=== PATIENT | female | born 1945 | race Caucasian/White ===

== ENCOUNTER 2017-04-04 11:10 | Emergency (ER) | payer MEDICARE, OTHER ==
[~2017-04-04] VITALS: Wt 100.9 kg
[2017-04-04] MEDS ORDERED: ASPIR LOW81 MG PO (11:50)
[2017-04-04] MEDS ORDERED: BUMETANIDE2 M1 PO (11:50)
[2017-04-04] MEDS ORDERED: CALCITRIOL0.5 MCG PO (11:50)
[2017-04-04] MEDS ORDERED: COREG12.5 M1 PO (11:51)
[2017-04-04] MEDS ORDERED: INSULIN HUMA100 U/ML SQ (11:51)
[2017-04-04] MEDS ORDERED: COZAAR25 M1 PO (11:51)
[2017-04-04] MEDS ORDERED: CRESTOR5 MG PO (11:51)
[2017-04-04] MEDS ORDERED: LANTUS PEN100 U/ML SQ (11:51)
[2017-04-04] MEDS ORDERED: WARFARIN SOD5 MG PO (11:52)
[2017-04-04] MEDS ORDERED: TIROSINT50 MC1 PO (11:52)
[2017-04-04 14:23] VITALS: BP 130/76
[2017-04-08] MEDS ORDERED: VITAMIN D33000 UNIT PO (11:49)
[2017-05-02] MEDS ORDERED: CALCITRIOL PO (16:09)
== END 2017-04-04 14:18 | disposition home or self-care (01) ==
LOC: ED 11:10
DX: I13.0 Hypertensive heart and chronic kidney disease with heart failure and stage 1 through stage 4 chronic kidney disease, or unspecified chronic kidney disease (principal); I50.22 Chronic systolic (congestive) heart failure; N18.9 Chronic kidney disease, unspecified; E11.22 Type 2 diabetes mellitus with diabetic chronic kidney disease; Z79.4 Long term (current) use of insulin; Z79.01 Long term (current) use of anticoagulants

== ENCOUNTER → 2017-04-08 | Outpatient (CLI) | payer MEDICARE, OTHER ==
[~2017-04-08] VITALS: Ht 172.7 cm; Wt 99.5 kg
[~2017-04-08] MED LIST: ASPIR LOW81 MG PO; BUMETANIDE2 M1 PO; BUMEX 1MG TA1 MG/TA1 PO; CALCITRIOL PO; CALCITRIOL0.5 MCG PO; COREG12.5 M1 PO; COZAAR25 M1 PO; CRESTOR5 MG PO; INSULIN HUMA100 U/ML SQ; LANTUS PEN100 U/ML SQ; TIROSINT50 MC1 PO; VITAMIN D33000 UNIT PO; WARFARIN SOD5 MG PO
[2017-04-08 11:52] VITALS: BP 137/87
== END ==
LOC: AMSURD 10:56
DX: R60.9 Edema, unspecified (principal); Z79.01 Long term (current) use of anticoagulants; Z51.81 Encounter for therapeutic drug level monitoring

== ENCOUNTER → 2017-04-11 | Outpatient (CLI) | payer MEDICARE, OTHER ==
[2017-04-08 11:52] VITALS: BP 137/87
== END ==
LOC: LAB 13:51
DX: R60.9 Edema, unspecified (principal)

== ENCOUNTER → 2017-04-17 | Outpatient (CLI) | payer MEDICARE, OTHER ==
[2017-04-08 11:52] VITALS: BP 137/87
== END ==
LOC: LAB 11:35
DX: R60.9 Edema, unspecified (principal)

== ENCOUNTER → 2017-05-02 | Outpatient (CLI) | payer MEDICARE, OTHER ==
[~2017-05-02] VITALS: Ht 172.7 cm; Wt 99.5 kg
[2017-05-02 16:11] VITALS: BP 142/87
== END ==
LOC: AMSURD 15:35
DX: E11.9 Type 2 diabetes mellitus without complications (principal); E03.4 Atrophy of thyroid (acquired); N18.9 Chronic kidney disease, unspecified; I25.5 Ischemic cardiomyopathy

== ENCOUNTER 2017-05-12 13:08 | Emergency (ER) | payer MEDICARE, OTHER ==
[~2017-05-12] VITALS: Ht 175.3 cm; Wt 102.3 kg
[~2017-05-12 13:08] MED LIST changes: -BUMEX 1MG TA1 MG/TA1 PO
[2017-05-12] MEDS ORDERED: BUMEX 1MG TA1 MG/TA1 PO (13:16)
[2017-05-12 16:05] VITALS: BP 146/88
== END 2017-05-12 15:30 | disposition short-term general hospital (02) ==
LOC: ED 13:08
DX: I48.2 Chronic atrial fibrillation (principal); I13.0 Hypertensive heart and chronic kidney disease with heart failure and stage 1 through stage 4 chronic kidney disease, or unspecified chronic kidney disease; E11.22 Type 2 diabetes mellitus with diabetic chronic kidney disease; Z79.01 Long term (current) use of anticoagulants; I25.10 Atherosclerotic heart disease of native coronary artery without angina pectoris; Z95.1 Presence of aortocoronary bypass graft; N18.4 Chronic kidney disease, stage 4 (severe); Z79.4 Long term (current) use of insulin; I50.1 Left ventricular failure, unspecified

== ENCOUNTER → 2017-05-21 | Outpatient (CLI) | payer MEDICARE, OTHER ==
[2017-05-12 16:05] VITALS: BP 146/88
[~2017-05-21] MED LIST changes: +BUMEX 1MG TA1 MG/TA1 PO
== END ==
LOC: LAB 14:18
DX: I48.1 Persistent atrial fibrillation (principal)

== ENCOUNTER → 2017-06-05 | Outpatient (CLI) | payer MEDICARE, OTHER ==
[2017-05-12 16:05] VITALS: BP 146/88
== END ==
LOC: LAB 12:34
DX: Z79.899 Other long term (current) drug therapy (principal)

== ENCOUNTER 2017-07-01 11:44 | Outpatient (RCR) | payer MEDICARE, OTHER | END 2017-09-29 | disposition home or self-care (01) | LOC: CARDREHAB | DX: I50.9 Heart failure, unspecified (principal) ==

== ENCOUNTER → 2017-07-03 | Outpatient (CLI) | payer MEDICARE, OTHER | LOC: LAB 12:17 | DX: N18.9 Chronic kidney disease, unspecified (principal); I48.91 Unspecified atrial fibrillation ==

== ENCOUNTER → 2017-07-14 | Outpatient (CLI) | payer MEDICARE, OTHER | LOC: LAB 12:50 | DX: I48.91 Unspecified atrial fibrillation (principal); N18.4 Chronic kidney disease, stage 4 (severe) ==

== ENCOUNTER → 2017-07-25 | Outpatient (CLI) | payer MEDICARE, OTHER | LOC: LAB 13:50 | DX: I48.91 Unspecified atrial fibrillation (principal) ==

== ENCOUNTER → 2017-08-04 | Outpatient (CLI) | payer MEDICARE, OTHER | LOC: VAS 15:13 | DX: N18.9 Chronic kidney disease, unspecified (principal) ==

== ENCOUNTER → 2018-03-02 | Outpatient (CLI) | payer MEDICARE, OTHER | LOC: RAD 10:19 | DX: R22.42 Localized swelling, mass and lump, left lower limb (principal) ==

== ENCOUNTER → 2018-04-30 | Outpatient (CLI) | payer MEDICARE, OTHER ==
[2018-04-30 09:50] LABS: BUN/CREATININE RATIO 37.8 (6.0-26.0); CALCIUM 9.5 mg/dL (8.4-10.2); POTASSIUM 3.9 mmol/L (3.6-5.0)
== END ==
LOC: LAB 08:31
PROVIDERS: Internal Medicine Cardiovascular Disease
DX: I50.9 Heart failure, unspecified (principal)

== ENCOUNTER → 2019-04-22 | Outpatient (CLI) | payer MEDICARE, OTHER ==
[2019-04-22 09:25] LABS: POTASSIUM 3.8 mmol/L (3.5-5.1)
[2019-04-22 09:26] LABS: ALBUMIN 3.5 g/dL (3.4-4.8); CALCIUM 9.4 mg/dL (8.3-10.5)
[2019-04-22 09:27] LABS: EOS # 0.2 (0.04-0.40); EOS % 3.5 % (1.0-5.0); HEMATOCRIT 42.8 % (37.0-47.0); HEMOGLOBIN 13.4 g/dL (12.5-16.0); LYMPH# 0.8 (1.50-4.00); MEAN CELL VOLUME 94 fl (78-100); MEAN CORPUSCULAR HEMOGLOBIN 30 pg (27-31); MEAN CORPUSCULAR HGB CONC 31 g/dL (33-37); MONO # 0.5 (0.20-0.80); NEU # 4.8 (1.40-6.50); PLATELET COUNT 127 K/mm3 (130-400); RED BLOOD COUNT 4.55 M/mm3 (4.10-5.30); RED CELL DISTRIBUTION WIDTH 15.3 % (11.5-14.5); WHITE BLOOD COUNT 6.3 K/mm3 (4.8-10.8)
[2019-04-22 09:28] LABS: PROTHROMBIN TIME 31.5 SECONDS (9.0-12.0); TOTAL PROTEIN 6.8 g/dL (6.2-8.1)
[2019-04-22 09:30] LABS: TOTAL BILIRUBIN 1.1 mg/dL (0.2-1.2)
[2019-04-22 10:31] LABS: ERYTHROCYTE SEDIMENTATION RATE 10 mm/hr (0-30)
[2019-04-22 17:12] LABS: URINE APPEARANCE CLEAR; URINE BILIRUBIN NEGATIVE (NEGATIVE); URINE BLOOD NEGATIVE (NEGATIVE); URINE COLOR YELLOW; URINE GLUCOSE NEGATIVE (NEGATIVE); URINE KETONE NEGATIVE (NEGATIVE); URINE LEUKOCYTE ESTERASE NEGATIVE (NEGATIVE); URINE NITRATE NEGATIVE (NEGATIVE); URINE PROTEIN(semi-quant) 2+ mg/dL (NEGATIVE); URINE UROBILINOGEN NORMAL (NORMAL)
[2019-04-22 17:13] LABS: URINE WBC 0-1 /hpf (0-3)
[2019-04-22 22:31] LABS: PTH,INTACT 285.7 pg/mL (6.6-88.9)
[2019-04-22 23:45] LABS: CALCIUM, IONIZED, SERUM 1.26 mmol/L (1.19-1.41)
== END ==
LOC: LAB 08:59
PROVIDERS: Internal Medicine
DX: Z12.11 Encounter for screening for malignant neoplasm of colon (principal); E11.22 Type 2 diabetes mellitus with diabetic chronic kidney disease; N18.4 Chronic kidney disease, stage 4 (severe); I48.91 Unspecified atrial fibrillation; N25.81 Secondary hyperparathyroidism of renal origin; I25.5 Ischemic cardiomyopathy

== ENCOUNTER → 2019-05-03 | Outpatient (CLI) | payer MEDICARE, OTHER | LOC: RAD 15:17 | DX: S92.352A Displaced fracture of fifth metatarsal bone, left foot, initial encounter for closed fracture (principal) ==

== ENCOUNTER → 2019-05-11 | Outpatient (CLI) | payer MEDICARE, OTHER ==
[2019-05-11 12:31] LABS: ALBUMIN 3.6 g/dL (3.4-4.8); POTASSIUM 3.5 mmol/L (3.5-5.1)
[2019-05-11 12:34] LABS: TOTAL PROTEIN 6.8 g/dL (6.2-8.1)
[2019-05-11 12:35] LABS: TOTAL BILIRUBIN 1.3 mg/dL (0.2-1.2)
== END ==
LOC: LAB 12:03
PROVIDERS: Internal Medicine
DX: E11.22 Type 2 diabetes mellitus with diabetic chronic kidney disease (principal); N18.4 Chronic kidney disease, stage 4 (severe); I48.91 Unspecified atrial fibrillation; I25.5 Ischemic cardiomyopathy; N25.81 Secondary hyperparathyroidism of renal origin

== ENCOUNTER → 2019-05-20 | Outpatient (CLI) | payer MEDICARE, OTHER | LOC: RAD 14:01 | DX: S92.352A Displaced fracture of fifth metatarsal bone, left foot, initial encounter for closed fracture (principal) ==

== ENCOUNTER → 2019-06-14 | Outpatient (CLI) | payer MEDICARE, OTHER ==
[2019-06-14 13:59] LABS: PROTHROMBIN TIME 21.6 SECONDS (9.0-12.0)
== END ==
LOC: LAB 13:34
PROVIDERS: Internal Medicine
DX: I48.91 Unspecified atrial fibrillation (principal)

== ENCOUNTER → 2019-06-22 | Outpatient (CLI) | payer MEDICARE, OTHER ==
[2019-06-22 10:05] LABS: PROTHROMBIN TIME 29.4 SECONDS (9.0-12.0)
== END ==
LOC: LAB 09:27
PROVIDERS: Internal Medicine
DX: I48.91 Unspecified atrial fibrillation (principal)